=== PATIENT | female | born 1990 | race African-American/Black ===

== ENCOUNTER 2017-10-17 17:39 | Emergency (ER) | payer OTHER ==
[~2017-10-17] VITALS: Ht 170.2 cm; Wt 57.0 kg
[2017-10-17 17:50] VITALS: TEMP 36.9; Ht 170.2 cm; Wt 57.0 kg
[2017-10-17] MEDS ORDERED: IBUPROFEN 600 MG TAB PO STA (17:50)
[2017-10-17] MEDS ORDERED: BCPILLS PO (17:56)
--- NOTE | 2017-10-17 19:57 | DIAGNOSTIC IMAGING REPORT ---
L HAND MIN 3 VIEWS ROUTINE HISTORY: 26 years-old Female L hand pain acute left hand pain COMPARISON: None available TECHNIQUE: 3 views of the left hand FINDINGS: No acute fracture, dislocation, significant changes or opaque foreign body. IMPRESSION: No acute fracture. The above report was generated using voice recognition software. It may contain grammatical, syntax or spelling errors. Electronically signed by: Johnny Shell M.D. 10/17/2017 7:55 PM Dictated Date/Time: 10/17/2017 7:54 PM
--- NOTE | 2017-10-17 20:02 | DIAGNOSTIC IMAGING REPORT ---
THORACIC SPINE 3 VIEWS ROUTINE, L-SPINE MIN 4 VIEWS ROUTINE, C-SPINE ROUTINE 4 OR 5 VIEWS HISTORY: 26 years-old Female Back pain acute neck and back pain COMPARISON: None available TECHNIQUE: 3 views of the thoracic spine with 5 views of the lumbar spine and 5 views of the cervical spine FINDINGS: CERVICAL: Mild straightening of the normal cervical lordosis. No acute cervical spine fracture, subluxation or significant degenerative changes. Lung apices appear clear. No prevertebral soft tissue swelling or opaque foreign body. THORACIC: Imaged lung reed appear clear. There is no acute fracture, subluxation or significant degenerative changes. LUMBAR: No acute fracture, subluxation, significant degenerative changes, spondylolysis or spondylolisthesis. IMPRESSION: No acute fracture or subluxation. The above report was generated using voice recognition software. It may contain grammatical, syntax or spelling errors. Electronically signed by: Johnny Shell M.D. 10/17/2017 8:00 PM Dictated Date/Time: 10/17/2017 7:58 PM
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
--- NOTE | 2017-10-17 20:08 | DIAGNOSTIC IMAGING REPORT ---
R HAND MIN 3 VIEWS ROUTINE, R FOREARM 2 VIEWS ROUTINE HISTORY: 26 years-old Female R forearm/hand pain acute right hand and forearm pain COMPARISON: None available TECHNIQUE: 3 views of the right hand and 2 views of the right forearm FINDINGS: HAND: No acute fracture, dislocation, significant changes or opaque foreign body. FOREARM: No acute fracture, dislocation, significant degenerative changes or opaque foreign body. IMPRESSION: No acute fracture or dislocation. The above report was generated using voice recognition software. It may contain grammatical, syntax or spelling errors. Electronically signed by: Johnny Shell M.D. 10/17/2017 8:07 PM Dictated Date/Time: 10/17/2017 8:04 PM
[2017-10-17] MEDS ORDERED: LIDOCAINE 1% BUFFERED INJ 5 ML VIAL INFIL ONE (20:45)
[2017-10-17 21:54] VITALS: BP 132/89; PULSE 67; O2SAT 100
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
== END 2017-10-17 21:54 | disposition home or self-care (01) ==
LOC: C.EDC 17:41
DX: S40.811A Abrasion of right upper arm, initial encounter (principal); S40.812A Abrasion of left upper arm, initial encounter; S80.811A Abrasion, right lower leg, initial encounter; S80.812A Abrasion, left lower leg, initial encounter; T14.8XXA Other injury of unspecified body region, initial encounter; V44.6XXA Car passenger injured in collision with heavy transport vehicle or bus in traffic accident, initial encounter; Y92.488 Other paved roadways as the place of occurrence of the external cause; M54.9 Dorsalgia, unspecified; S16.1XXA Strain of muscle, fascia and tendon at neck level, initial encounter; S90.852A Superficial foreign body, left foot, initial encounter; S90.851A Superficial foreign body, right foot, initial encounter; Z79.3 Long term (current) use of hormonal contraceptives